=== PATIENT | female | born 1935 | race Caucasian/White ===

== ENCOUNTER → 2018-04-07 | Outpatient (REF) | payer MEDICARE ==
[~2018-04-07] MED LIST: ALEVE PO; ALPRAZOLAM0.25 M1 PO; AMLODIPINE5 MG PO; ATENOLOL50 MG PO; BACTRIM DS1 TAB PO; BETAMETH DIP0.05 % EX; BETAMETH DIP0.052 EX; CLARITIN10 M1 PO; COCONUT OIL O1000 MG PO; CRANBERRY500 MG PO; GELATIN PO; LOMOTIL2.5 MG PO; LORTAB 5/3255 MG PO; MELOXICAM15 MG PO; MSM/GLUCOSA1 PO; OMEPRAZOLE20 MG PO; STOOL SOFTE1 PO; ZOFRAN ODT4 MG PO; ZOLPIDEM5 MG PO; [UNRECOGNIZED DRUG - OTHER] PO
== END | disposition home or self-care (01) ==
LOC: ULTRASND 06:53
PROVIDERS: ATTEND Obstetrics & Gynecology
DX: R19.00 Intra-abdominal and pelvic swelling, mass and lump, unspecified site (principal); N85.8 Other specified noninflammatory disorders of uterus; R10.2 Pelvic and perineal pain; R19.09 Other intra-abdominal and pelvic swelling, mass and lump